=== PATIENT | female | born 1990 | race Two or more races ===

== ENCOUNTER 2018-07-07 15:28 | Emergency (ER) | payer MEDICAID, OTHER ==
[~2018-07-07] VITALS: Ht 152.4 cm; Wt 78.9 kg
[2018-07-07 15:47] VITALS: BP 130/77
[2018-07-07] MEDS ORDERED: IBUPROFEN 800 MG TAB PO ONE (17:30)
== END 2018-07-07 18:04 | disposition home or self-care (01) ==
LOC: ER 15:34
DX: S93.401A Sprain of unspecified ligament of right ankle, initial encounter (principal); X50.1XXA Overexertion from prolonged static or awkward postures, initial encounter; Y93.39 Activity, other involving climbing, rappelling and jumping off; Y92.89 Other specified places as the place of occurrence of the external cause; Y99.8 Other external cause status
CPT/HCPCS: 29515; 73610